=== PATIENT | female | born 2005 | race African-American/Black ===

== ENCOUNTER 2024-03-15 11:14 | Emergency (ER) | payer BC, MEDICAID ==
[~2024-03-15] VITALS: Ht 160 cm; Wt 60.0 kg
[2024-03-15 11:23] VITALS: BP 106/58; PULSE 82; RESP 18; TEMP 98.5; O2SAT 100
== END 2024-03-15 12:40 | disposition home or self-care (01) ==
LOC: ER 11:14
DX: N91.2 Amenorrhea, unspecified (principal)
CPT/HCPCS: 36415; 81025; 84702; 99283